=== PATIENT | female | born 1960 | race Caucasian/White ===

== ENCOUNTER → 2018-01-26 | Outpatient (CLI) | payer MEDICARE ==
[~2018-01-26] MED LIST: ACTIGALL300 MG PO; AUGMENTIN 875875 M1 PO; FEMHRT 1-5 TAB1 EACH PO; FLAGYL500 MG PO; IRON; IRON PO; LEVAQUIN 750 M750 MG PO; LEVOXYL175 MCG PO; LOESTRIN1 EAC1 PO; METAMUCIL PAC1 UDPK1 PO; MIRALAX255 GM PO; MIRAPEX 0.250.25 M1 PO; NEXIUM40 MG PO; PROZAC; PROZAC PO; SPIRONOLACTONE50 MG PO
== END ==
LOC: M.RAD 13:30
DX: M19.032 Primary osteoarthritis, left wrist (principal); E03.9 Hypothyroidism, unspecified

== ENCOUNTER → 2019-02-16 | Outpatient (CLI) | payer MEDICARE ==
[2019-02-16 15:58] LABS: CREATININE 0.8 mg/dL (0.6-1.3)
== END ==
LOC: M.CT 15:20 → M.LAB 15:20 → M.CT 16:00
PROVIDERS: Internal Medicine
DX: K74.3 Primary biliary cirrhosis (principal); E03.9 Hypothyroidism, unspecified; K51.90 Ulcerative colitis, unspecified, without complications; M51.37 Other intervertebral disc degeneration, lumbosacral region; K76.0 Fatty (change of) liver, not elsewhere classified; Z90.49 Acquired absence of other specified parts of digestive tract; M47.814 Spondylosis without myelopathy or radiculopathy, thoracic region

== ENCOUNTER → 2019-11-25 | Outpatient (CLI) | payer MEDICARE, MEDICAID ==
[2019-11-25 15:17] LABS: ALBUMIN 3.9 g/dL (3.4-5.0); CALCIUM 9.2 mg/dL (8.5-10.1); POTASSIUM 3.5 mmol/L (3.5-5.1); TOTAL BILIRUBIN 0.7 mg/dL (<0.1-1.0); TOTAL PROTEIN 8.3 g/dL (6.4-8.2)
== END ==
LOC: M.LAB 14:22
PROVIDERS: ATTEND Internal Medicine
DX: E87.6 Hypokalemia (principal)